=== PATIENT | male | born 1950 | race Caucasian/White ===

== ENCOUNTER → 2022-07-22 12:46 | Outpatient (CLI) | payer MEDICARE, BC, SELFPAY ==
--- NOTE | 2022-07-22 | CA_ITS ---
APPROVED REPORT Exam: Pharmacologic Technologist: Crystal Meléndez Ht: 5 ft 7 in Wt: 179 lbs BSA: 1.93 m2 HR: 67 bpm BP: 132/81 mmHg Indications: PreOp Medical History Medications: Cephalexin,,,,, AlOGLIPTINE,,,,, Stress Test Details Test: LEXISCAN HR Resting HR: 71 bpm Max Heart Rate (APMHR): 146.756035 bpm Max HR Achieved: 93 bpm Target HR (85% APMHR): 124.953415 bpm % of APMHR: 63.70 Recovery HR: 73 bpm BP Resting BP: 132.0/81.0 mmHg Max BP: 132.0/81.0 mmHg Recovery BP: 104.0/59.0 mmHg ECG Resting ECG: normal sinus rhythm, left axis deviation, poor R wave progression Clinical Exercise duration: 04:01 min Highest Stage Achieved: Stress ECG Conclusion Symptoms: Very mild shortness of air, mild stomach discomfort, lightheaded. No chest pain. Arrhythmias/Ectopy: None ST-T Changes: No significant changes. Conclusion: Hypotensive with Lexiscan, otherwise unremarkable. Myoview images reported separately. Test Summary REST . . . . . . . Resting REST 05:55 . . 71 . 132/ 81 . . Stage 1 . . . . . . . Myoview Injected Stage 1 01:00 . . 92 . . . . Stage 2 01:00 . . 72 . . . . Stage 3 . . . . . . . lightheaded Stage 3 01:00 . . 79 . . . . Stage 4 01:00 . . 72 . 83/ 46 . . Stage 4 01:01 . . 72 . 83/ 46 . Stop exercise at 04:01 RECOVERY 01:00 . . 65 . 87/ 50 . . RECOVERY 02:00 . . 65 . 82/ 52 . . RECOVERY 03:00 . . 71 . 90/ 54 . . RECOVERY 04:00 . . 72 . 90/ 54 . . RECOVERY 05:00 . . 70 . 109/ 61 . . RECOVERY 06:00 . . 77 . 110/ 68 . . RECOVERY 07:00 . . 74 . 110/ 68 . . RECOVERY 08:00 . . 74 . 104/ 59 . . RECOVERY 09:00 . . 77 . 101/ 58 . . RECOVERY 10:00 . . 71 . 101/ 58 . . RECOVERY 10:39 . . 75 . 109/ 61 . . Electronically signed by : Sanjay Helms MD 07/22/2022 15:05:50
--- NOTE | 2022-07-22 12:46 | NM_ITS ---
APPROVED REPORT Exam: Nuclear Stress Test Indication: DM, FM HX, SOB, PRE-OP Patient Location: Outpatient Stress Tech: Crystal Medhat NM Tech:Leela GreenJENNIFER RT (R)(N)(M) Ht: 5 ft 8 in Wt: 175 lbs HR: 67 bpm BP: 132/81 mmHg BSA: 1.93 m2 TID: 1.08 BMI: 26.6 History: DM, FM HX, SOB, PRE-OP Procedure: Patient received a 0.4 mg of intravenous Lexiscan, resting heart rate 67 bpm, resting blood pressure 132/81 mmHg, with Lexiscan maximum heart rate achived was 91 bpm which is Less than 85 % of the maximum predicted heart rate and blood pressure was 83/46 mmHg. With Lexiscan, patient denied any complaint of chest pain. Electrocardiogram Resting electrocardiogram shows sinus rhythm, with Lexiscan there is less than 1.[address] segment depression noted from the baseline EKG. The EKG portion of the Lexiscan is nondiagnostic. Cardiac Stress and Resting SPECT Images: Cardiac Stress and Resting SPECT images were obtained using technetium 99m Myoview 31.9 mCi stress and 9.73 mCi at rest. Gated SPECT analysis of segmental wall motion and calculation of the ejection fraction also done. Prone images were also obtained. Cardiac prone images show uniform myocardial activity without segmental perfusion abnormality, computer derived ejection fraction is 61% with no regional wall motion abnormality, right ventricle is normal size and contractility. Conclusion: 1. The EKG portion of the Lexiscan is nondiagnostic. 2. No scintigraphic evidence of reversible ischemia seen, computer derived ejection fraction is 61% with no regional wall motion abnormality, right ventricle is normal size and contractility. 3. Normal Lexiscan Myoview study. Electronically signed by : Sanjay Helms MD 07/22/2022 15:39:39
--- NOTE | 2022-07-22 14:06 | CA_ITS ---
APPROVED REPORT EXAM: Comprehensive 2D, Doppler, and color-flow Echocardiogram Pairing Machine Operator: Shirley Thompson RT(R) Ht: 5 ft 7 in Wt: 179lbs BSA: 1.93 BP: 152/74 mmHg Indications: SOB, pre op sinus surgery, Abn EKG 2D Dimensions LVOT 2.03 cm (M/F) 1.5-2.5 LVEF (Bloom's) 65.50 % M: 52 - 72 LV Volume 78.20 mL M: 62 - 150 LV Volume Index 40.52 mL/m2 M: 34 - 74 LA Volume 29.90 mL LA Volume Index 15.49 mL/m2 (M/F) 16-34 M-Mode Dimensions RVDd 2.86 cm (0.9-2.6) LA Diam 3.47 cm (1.9-4.0) LVDd 3.42 cm (3.5-5.7) Ao Diam 2.91 cm (2.0-3.7) LVDs 2.54 cm (3.5-5.7) IVSd 1.09 cm (0.6-1.1) PWd 0.89 cm (0.6-1.1) EF (Teich) 51.80% FS 25.70% EDV (Teich) 48.10 mL ESV (Teich) 23.20 mL LV Diastology E Decel Time 233.00 (160-240 msec) E/A Ratio 0.8 MED E' 6.90 (< 7 cm/sec) E'/MED E' Ratio 10.57 (>14) Mitral Valve MV E Max Soy. 73.00 (40-130 cm/s) MV A Velocity 88.00 (40-130 cm/s) E/A Ratio 0.82 MV Decel. Time 233.00 (160-240 ms) MV PHT 68.00 ms Left Ventricle Remains mildly enlarged, left ventricle is normal size mild concentric left ventricular hypertrophy, estimated ejection fraction 55% with no regional wall motion abnormality, grade 1 diastolic dysfunction seen without tissue Doppler evidence of raise left atrial pressure. Right Ventricle Right atrium and right ventricle are mildly enlarged with normal contractility. Aortic Valve Aortic valve is minimally thickened and fibrosed there is no aortic stenosis or aortic insufficiency. Mitral Valve Mitral valve grossly normal, there is trace mitral regurgitation. Tricuspid Valve Tricuspid valve is grossly normal, there is trace tricuspid regurgitation, tricuspid regurgitation jet velocity is inadequate for calculation of the right ventricular systolic pressure. Pulmonic Valve Pulmonic valve is poorly visualized. Great Vessels Aortic root is normal size. Inferior vena cava is poorly visualized. Pericardium No significant pericardial effusion noted. Conclusion 1. Mild biatrial enlargement, normal left ventricular size, mild concentric left ventricular hypertrophy, estimated ejection fraction 55% with no regional wall motion abnormality. Grade 1 diastolic dysfunction seen without tissue Doppler evidence of raise left atrial pressure. 2. Trace mitral and tricuspid regurgitation. 3. No significant pericardial effusion noted. 4. Inferior vena cava is poorly visualized. Electronically signed by : Sanjay Helms MD 07/22/2022 15:33:34
== END ==
PROVIDERS: PCP Internal Medicine; Visit Provider Internal Medicine
DX: R06.09 Other forms of dyspnea (principal); R94.31 Abnormal electrocardiogram [ECG] [EKG]; Z01.810 Encounter for preprocedural cardiovascular examination
CPT/HCPCS: 78452; 93017; 93306; A9502; J2785